=== PATIENT | female | born 1980 | race Caucasian/White ===

== ENCOUNTER 2021-07-05 16:56 | Emergency (ER) | payer OTHER ==
[~2021-07-05] VITALS: Ht 160 cm; Wt 73.9 kg
[2021-07-05] MEDS ORDERED: SYNTHROID200 MCG (17:29)
== END 2021-07-05 22:40 | disposition home or self-care (01) ==
LOC: ER 16:56
DX: O26.859 Spotting complicating pregnancy, unspecified trimester (principal); B34.9 Viral infection, unspecified; Z3A.00 Weeks of gestation of pregnancy not specified; Z03.818 Encounter for observation for suspected exposure to other biological agents ruled out; R51.9 Headache, unspecified